=== PATIENT | female | born 1980 | race Two or more races ===

== ENCOUNTER → 2017-06-16 | Outpatient (CLI) | payer OTHER ==
--- NOTE | ~2017-06-16 | US98 ---
[facility] A Service of [facility] RADIOLOGY TEXT RESULTS PATIENT: JAY QUINTANA LOCATION: [facility] : 84 UNIT #: [id number] AGE: [address]: Adeola Almonte SEX: F ORDER DR: [id number] [facility] [address] [place], [place] [address] [id number] O MR#: [id number] Acc #: [id number] NAME: JAY QUINTANA : 1980 SEX: F STUDY DATE/TIME: 06/16/2017 10:28 UNIT: [facility] ROOM: STUDY DESCRIPTION: US Pelvic Non-OB Complete Attending Physician: Adeola Almonte A.P.R.N. Referring Physician: Adeola Almonte A.P.R.N. Ordering Physician: Adeola Almonte A.P.R.N. Primary Care Physician: Adeola Almonte A.P.R.N. MEDICAL IMAGING REPORT This report is preliminary unless electronic signature is present EXAM Transabdominal and transvaginal pelvic ultrasound, 06/16/2017. HISTORY Left lower quadrant abdominal and pelvic pain for 1 month. TECHNIQUE Transabdominal and transvaginal pelvic ultrasound was performed. Endovaginal ultrasound was performed for attempted better visualization of the adnexal structures. FINDINGS The bladder is normal in appearance. The uterus measures 9.3 cm craniocaudal by 3.5 cm AP x 5.5 cm transverse. Endometrial stripe measures 5 mm. The right ovary measures 2.6 cm x 8 approximately 1.5 cm x 1.5 cm, and contains several small follicles with the dominant follicle measuring 1.5 cm. The left ovary measures 2.3 cm x 2.4 cm x 1.7 cm. Small follicles are also seen in the left ovary. There is no adnexal mass. Color-flow Doppler images show normal blood flow to both ovaries. There is no free fluid in the pelvis. IMPRESSION Negative transabdominal and transvaginal pelvic ultrasound. Dictated by... Jsohua R. Saleem, M.D. THIS IS AN ELECTRONICALLY VERIFIED REPORT Joshua Monge M.D. at 06/19/2017 6:07 AM TRACI/karissa TD: 06/16/2017 19:00 [facility] A Service of [facility] RADIOLOGY TEXT RESULTS PATIENT: JAY QUINTANA LOCATION: [facility] : 84 UNIT #: [id number] AGE: [address]: Adeola Almonte SEX: F ORDER DR: JOB #: [id number] MEDICAL IMAGING REPORT Page 1 of 1 COPY
== END | disposition home or self-care (01) ==
LOC: CWCC 10:18
DX: R10.2 Pelvic and perineal pain (principal)
CPT/HCPCS: 76830; 76856